=== PATIENT | male | born 1995 | race Caucasian/White ===

== ENCOUNTER 2017-01-10 23:14 | Emergency (ER) | payer OTHER ==
[~2017-01-10] VITALS: Ht 170.2 cm; Wt 78.1 kg
[2017-01-10] MEDS ORDERED: PROAIR HFA0.09 MG/AC IH (23:20)
[2017-01-10 23:43] LABS: BASO # 0.1 (0.0-0.2); BASO % 0.4 % (0.0-2.0); EOS # 0.2 (0.0-0.7); EOS % 1.1 % (0-4.0); GRAN # 9.9 (1.4-6.5); GRAN % 73.3 % (42.2-75.2); HEMOGLOBIN 16.4 g/dl (12.5-16.1); LYMPH # 2.4 (1.2-3.4); LYMPH % 17.5 % (20.0-51.0); MEAN CELL VOLUME 89 fl (80.0-95.0); MEAN CORPUSCULAR HEMOGLOBIN 32 pg (26.0-32.0); MEAN CORPUSCULAR HGB CONC 36 g/dl (33.0-37.0); MEAN PLATELET VOLUME 10.1 fl (7.4-10.4); MONO % 7.4 % (1.7-9.3); PLATELET COUNT 252 K/mm3 (130-400); RED BLOOD COUNT 5.18 M/mm3 (4.20-5.60); WHITE BLOOD COUNT 13.6 K/mm3 (4.8-10.8)
[2017-01-10 23:57] LABS: ADJUSTED CALCIUM 9.5 mg/dL (8.4-10.2); ALBUMIN 4.9 gm/dL (3.5-5.0); BILIRUBIN,TOTAL 0.9 mg/dL (0.0-1.0); CALCIUM 10.2 mg/dL (8.4-10.2); CREATININE, serum 0.84 mg/dL (0.66-1.25); POTASSIUM 4.1 mmol/L (3.4-5.0); TOTAL PROTEIN 7.3 gm/dL (6.4-8.2)
[2017-01-11] LABS: ACETAMINOPHEN < 10 ug/mL (10-30); SALICYLATE < 1.0 mg/dL
[2017-01-11 00:50] LABS: AMPHETAMINE URINE NEGATIVE; BARBITURATES URINE NEGATIVE; BENZODIAZEPINES URINE NEGATIVE; BUPRENORPHINE URINE NEGATIVE; METHADONE URINE NEGATIVE; OPIATES URINE NEGATIVE; OXYCODONE URINE NEGATIVE; PHENCYCLIDINE URINE NEGATIVE; PROPOXYPHENE URINE NEGATIVE; THC CANNABINOIDS URINE NEGATIVE
[2017-01-11 02:36] LABS: CEREBROSPINAL TUBE #2; CEREBROSPINAL TUBE #4; CSF APPEARANCE CLEAR; CSF COLOR COLORLESS
[2017-01-11] MEDS ORDERED: ZOFRAN8 MG PO (02:52)
[2017-01-11 02:58] VITALS: TEMP 97.9
[2017-01-11 03:51] VITALS: BP 126/83; PULSE 87
== END 2017-01-11 03:56 | disposition home or self-care (01) ==
LOC: COL.ER 23:14
PROVIDERS: Emergency Medicine
DX: R51 Headache (principal); R10.84 Generalized abdominal pain; E86.9 Volume depletion, unspecified; R11.2 Nausea with vomiting, unspecified; L08.9 Local infection of the skin and subcutaneous tissue, unspecified; B95.8 Unspecified staphylococcus as the cause of diseases classified elsewhere
CPT/HCPCS: J1170; J1885; J2405; J2765; J7030